=== PATIENT | female | born 1960 | race Caucasian/White ===

== ENCOUNTER 2016-11-02 07:10 | Inpatient (IN) | payer BC ==
[2016-11-02] VITALS (264 sets, daily range): BP systolic 100–119; BP diastolic 68–92; PULSE 90–103; TEMP 98.1–98.9; O2SAT 79–100
[~2016-11-02] VITALS: Ht 167.6 cm; Wt 87.2 kg
[2016-11-02] MEDS ORDERED: EFFEXOR100 MG PO (07:47)
[2016-11-02] MEDS ORDERED: PROZAC 20MG20 MG PO (07:47)
[2016-11-02] MEDS ORDERED: ABILIFY20 MG PO (07:47)
[2016-11-02] MEDS ORDERED: IRON325 MG PO (07:48)
[2016-11-02] MEDS ORDERED: FOLIC ACID 11 MG/TA1 PO (07:48)
[2016-11-02] MEDS ORDERED: NEURONTIN300 MG/CAP PO (07:48)
[2016-11-02] MEDS ORDERED: VITAMINC500CH (07:49)
[2016-11-02] MEDS ORDERED: METHOTREXA2.5 MG/TAB PO (07:49)
[2016-11-02] MEDS ORDERED: MULTIPLE VITAMI1 CAP PO (07:50)
[2016-11-02 08:00] LABS: BASO # 0.1 (0.0-0.2); BASO % 0.3 % (0.0-2.0); EOS # 0.2 (0.0-0.7); EOS % 0.9 % (0-4.0); GRAN # 14.6 (1.4-6.5); GRAN % 82.7 % (42.2-75.2); LYMPH # 1.7 (1.2-3.4); LYMPH % 9.4 % (20.0-51.0); MEAN CELL VOLUME 81 fl (80.0-100.0); MEAN CORPUSCULAR HGB CONC 31 g/dl (33.0-37.0); MEAN PLATELET VOLUME 9.7 fl (7.4-10.4); MONO # 1.1 (0.1-0.6); PLATELET COUNT 538 K/mm3 (130-400); RED BLOOD COUNT 3.61 M/mm3 (4.10-5.30); REDCELL DISTRIBUTION WIDTH-CV 18.7 % (11.5-14.5); WHITE BLOOD COUNT 17.6 K/mm3 (4.8-10.8)
[2016-11-02 08:01] LABS: HEMATOCRIT 29.3 % (37.0-47.0); HEMOGLOBIN 9.1 g/dl (12.5-16.0); MEAN CORPUSCULAR HEMOGLOBIN 25 pg (27.0-31.0)
[2016-11-02 08:12] LABS: ADJUSTED CALCIUM 9.8 mg/dL (8.4-10.2); ALBUMIN 3.6 gm/dL (3.5-5.0); BILIRUBIN,TOTAL 0.5 mg/dL (0.0-1.0); CALCIUM 9.5 mg/dL (8.4-10.2); CREATININE, serum 0.66 mg/dL (0.52-1.25); MAGNESIUM 1.9 mg/dL (1.6-2.3); PHOSPHOROUS 3.8 mg/dL (2.5-4.5); POTASSIUM 4.2 mmol/L (3.4-5.0); TOTAL PROTEIN 7.9 gm/dL (6.4-8.2)
[2016-11-02 08:14] LABS: PH 6 (5-8); SQUAMOUS EPITHELIAL 0-2 /hpf; URINE APPEARANCE Clear; URINE BACTERIA None Seen /hpf; URINE BILIRUBIN Negative (NEGATIVE); URINE BLOOD Negative (NEGATIVE); URINE COLOR Yellow; URINE GLUCOSE Negative (NEGATIVE); URINE KETONE Negative (NEGATIVE); URINE RBC 0-2 /hpf; URINE UROBILINOGEN Negative (NEGATIVE); URINE WBC 0-2 /hpf
[2016-11-02 09:57] LABS: INFLUENZA B NEGATIVE
[2016-11-02] MEDS ORDERED: EFFEXOR-XR150 MG PO (17:02)
[2016-11-03] VITALS (526 sets, daily range): BP systolic 105–114; BP diastolic 74–83; PULSE 80–86; TEMP 97.9–98.2; O2SAT 65–100
[2016-11-03 06:02] LABS: BASO % 0.2 % (0.0-2.0); EOS % 0.1 % (0-4.0); GRAN # 7.4 (1.4-6.5); GRAN % 72.5 % (42.2-75.2); LYMPH # 2.3 (1.2-3.4); LYMPH % 22.5 % (20.0-51.0); MEAN CELL VOLUME 82 fl (80.0-100.0); MEAN CORPUSCULAR HGB CONC 30 g/dl (33.0-37.0); MEAN PLATELET VOLUME 9.3 fl (7.4-10.4); MONO # 0.4 (0.1-0.6); MONO % 4.1 % (1.7-9.3); PLATELET COUNT 455 K/mm3 (130-400); RED BLOOD COUNT 3.12 M/mm3 (4.10-5.30); REDCELL DISTRIBUTION WIDTH-CV 18.8 % (11.5-14.5); WHITE BLOOD COUNT 10.2 K/mm3 (4.8-10.8)
[2016-11-03 06:09] LABS: HEMATOCRIT 25.7 % (37.0-47.0); HEMOGLOBIN 7.7 g/dl (12.5-16.0); MEAN CORPUSCULAR HEMOGLOBIN 25 pg (27.0-31.0)
[2016-11-03 06:18] LABS: ADJUSTED CALCIUM 9.7 mg/dL (8.4-10.2); ALBUMIN 3.1 gm/dL (3.5-5.0); BILIRUBIN,TOTAL 0.4 mg/dL (0.0-1.0); CREATININE, serum 0.6 mg/dL (0.52-1.25); POTASSIUM 3.8 mmol/L (3.4-5.0); TOTAL PROTEIN 7.1 gm/dL (6.4-8.2)
[2016-11-03 06:29] LABS: INR 1.2 (0.8-3.0); PROTHROMBIN TIME 13.9 SECONDS (9.7-12.8)
[2016-11-03 06:31] LABS: ARTERIAL BLD GAS O2 SATURATION 93.5 % (92-100); ARTERIAL BLD GAS TCO2 CT 26.9; ARTERIAL BLOOD GAS BASE EXCESS 1.4 (-2-2); ARTERIAL BLOOD GAS HCO3 25.7 meq/L (22-26); ARTERIAL BLOOD GAS PHT 7.43 C (7.35-7.45); ARTERIAL BLOOD GAS PO2 71.7 mmHg (80-100); ARTERIAL BLOOD GAS PO2T 71.7 (80-100); ARTERIAL BLOOD GAS pH 7.43 (7.35-7.45); OXYHEMOGLOBIN 92.5 %
[2016-11-03 06:33] LABS: ATS? YES
[2016-11-03] MEDS ORDERED: PREDNISONE20 MG PO (11:50)
== END 2016-11-03 14:00 | disposition home or self-care (01) | DRG 57 ==
LOC: COL.ER 07:10 → ICU 14:07
PROVIDERS: Emergency Medicine; Family Medicine
DX: G25.70 Drug induced movement disorder, unspecified (principal); T43.215A Adverse effect of selective serotonin and norepinephrine reuptake inhibitors, initial encounter; T43.225A Adverse effect of selective serotonin reuptake inhibitors, initial encounter; M06.9 Rheumatoid arthritis, unspecified; G89.29 Other chronic pain
CPT/HCPCS: 99223-AI; 99239; J1650; J1720; J1956; J7030; J7512; Q9967

== ENCOUNTER → 2017-06-21 | Outpatient (CLI) | payer BC ==
[~2017-06-21] MED LIST: ABILIFY20 MG PO; EFFEXOR-XR150 MG PO; EFFEXOR100 MG PO; FOLIC ACID 11 MG/TA1 PO; IRON325 MG PO; METHOTREXA2.5 MG/TAB PO; MULTIPLE VITAMI1 CAP PO; NEURONTIN300 MG/CAP PO; PREDNISONE20 MG PO; PROZAC 20MG20 MG PO; VITAMINC500CH
== END ==
LOC: COL.RAD 14:42
DX: D35.01 Benign neoplasm of right adrenal gland (principal); M43.8X4 Other specified deforming dorsopathies, thoracic region

== ENCOUNTER → 2020-07-23 | Outpatient (CLI) | payer OTHER | LOC: COL.RAD 09:46 | DX: N28.89 Other specified disorders of kidney and ureter (principal) | CPT/HCPCS: Q9967 ==

== ENCOUNTER → 2021-07-07 | Outpatient (CLI) | payer OTHER | LOC: MHCPAIN 12:35 | DX: M47.816 Spondylosis without myelopathy or radiculopathy, lumbar region (principal); M53.3 Sacrococcygeal disorders, not elsewhere classified; M54.16 Radiculopathy, lumbar region | CPT/HCPCS: G0463 ==

== ENCOUNTER → 2021-08-05 | Outpatient (CLI) | payer OTHER | LOC: MHCPAIN 12:19 | DX: M47.816 Spondylosis without myelopathy or radiculopathy, lumbar region (principal); M54.16 Radiculopathy, lumbar region; M53.3 Sacrococcygeal disorders, not elsewhere classified | CPT/HCPCS: J1100; Q9967 ==

== ENCOUNTER → 2021-08-16 | Outpatient (CLI) | payer OTHER | LOC: MHCPAIN 11:07 | DX: M47.816 Spondylosis without myelopathy or radiculopathy, lumbar region (principal); M54.16 Radiculopathy, lumbar region; M53.3 Sacrococcygeal disorders, not elsewhere classified | CPT/HCPCS: G0463 ==

== ENCOUNTER → 2021-08-26 | Outpatient (CLI) | payer OTHER | LOC: MHCPAIN 10:50 | DX: M47.816 Spondylosis without myelopathy or radiculopathy, lumbar region (principal); M53.3 Sacrococcygeal disorders, not elsewhere classified; M54.16 Radiculopathy, lumbar region | CPT/HCPCS: J1100; Q9967 ==

== ENCOUNTER → 2021-09-15 | Outpatient (CLI) | payer OTHER | LOC: MHCPAIN 12:59 | DX: M47.817 Spondylosis without myelopathy or radiculopathy, lumbosacral region (principal); M53.3 Sacrococcygeal disorders, not elsewhere classified; M54.16 Radiculopathy, lumbar region | CPT/HCPCS: G0463 ==

== ENCOUNTER → 2021-12-07 | Outpatient (CLI) | payer OTHER | LOC: MHCPAIN 12:17 | DX: M47.816 Spondylosis without myelopathy or radiculopathy, lumbar region (principal); M53.3 Sacrococcygeal disorders, not elsewhere classified; M54.16 Radiculopathy, lumbar region | CPT/HCPCS: G0463 ==

== ENCOUNTER → 2021-12-16 | Outpatient (CLI) | payer OTHER | LOC: MHCPAIN 08:30 | DX: M47.816 Spondylosis without myelopathy or radiculopathy, lumbar region (principal); M53.3 Sacrococcygeal disorders, not elsewhere classified; M54.16 Radiculopathy, lumbar region | CPT/HCPCS: J1100; Q9967 ==

== ENCOUNTER → 2022-01-03 | Outpatient (CLI) | payer OTHER | LOC: MHCPAIN 13:07 | DX: M47.817 Spondylosis without myelopathy or radiculopathy, lumbosacral region (principal); M53.3 Sacrococcygeal disorders, not elsewhere classified; M54.16 Radiculopathy, lumbar region | CPT/HCPCS: G0463 ==

== ENCOUNTER → 2023-10-13 | Outpatient (CLI) | payer BC | LOC: COL.RAD 12:26 | DX: Z12.2 Encounter for screening for malignant neoplasm of respiratory organs (principal); Z87.891 Personal history of nicotine dependence ==

== ENCOUNTER → 2024-07-08 | Outpatient (CLI) | payer OTHER | LOC: COL.RAD 11:23 | DX: Z09 Encounter for follow-up examination after completed treatment for conditions other than malignant neoplasm (principal); M48.54XA Collapsed vertebra, not elsewhere classified, thoracic region, initial encounter for fracture; M41.84 Other forms of scoliosis, thoracic region; Z98.1 Arthrodesis status ==